=== PATIENT | male | born 1930 | race Caucasian/White ===

== ENCOUNTER → 2016-07-27 | Outpatient (CLI) | payer MEDICARE, OTHER | END | disposition disaster alternative care site (69) | LOC: LCNC 17:10 | DX: R53.82 Chronic fatigue, unspecified (principal) ==

== ENCOUNTER → 2016-08-10 | Outpatient (CLI) | payer MEDICARE, OTHER | END | disposition disaster alternative care site (69) | LOC: LCNC 08:43 | DX: E78.5 Hyperlipidemia, unspecified (principal) ==

== ENCOUNTER → 2016-08-13 | Outpatient (CLI) | payer MEDICARE, OTHER ==
--- NOTE | ~2016-08-13 | ESTC ---
Cardiac Perfusion Imaging Demographics Patient Name GABRIELE Osuna Gender Male Patient Number [id number] Race Visit Number [id number] Ethnicity [employer] ID Room Number Accession Number [id number] Height 70 inches Date of 1930 Weight 184 pounds Interpreting Enio Khan MD Date of study 08/13/2016 Physician Supervising /JENI Welch NM Technologist Freddy Pedersen APRN Ordering Physician Enio Khan MD Stress wireless technician Stress ECG Reading Aldo Welch Nurse Renetta Sandoval Physician TERRI RN Medications Reviewed with Patient prior to Procedure. Procedure Procedure Type: Nuclear Stress Test:Pharmacological, Lexiscan, Cardiolite Stress Test Procedure Start time: 08/13/2016 08:10 Indications: Dyspnea with exertion and History of CAD. Risk Factors The patient risk factors include:prior PCI on 05/13/2005;hypercholesterolemia, treated hypertension, family history of premature CAD and dyslipidemia. Conclusions Summary Cardiolite SPECT images demonstrate a mild area of reversibilty involving the inferolateral region without associated wall motion abnormalities. Possibly consistent with artifact. Normal TID ratio Gated images demonstrate normal left ventricular systolic function without inducible wall motion abnormalities. LVEF is 58% Stress Protocols Resting ECG RSR without ST or T wave changes. Resting HR:53 bpm Resting BP:173/70 mmHg Pre-stress physical exam: Patient assessed by Cynthia Carlson APRN prior to testing. Stress Protocol:Pharmacologic Peak HR:77 bpm HR response: Appropriate Peak BP:141/65 mmHg BP response: Appropriate Predicted HR: 137 bpm HR/BP product:86496 % of predicted HR: 56 Reason for termination:Infusion complete ECG Findings No ECG changes suggestive of ischemia. Arrhythmias No rhythm abnormality. Symptoms Shortness of breath. Flushing. Stress Interpretation Appropriate hemodynamic response to Lexiscan. No significant ST-T wave changes with Lexiscan. ECG portion is negative for ischemia by diagnostic criteria. Stress supervision and interpretation provided by Twyla Carlson APRN . Imaging Results Summed scores - Summed stress score: 12 - Summed rest score: 9 - Summed difference score: 3 Stress ejection Ejection fraction:58 % EDV :116 ml ESV :49 ml Stroke volume :67 ml LV mass :131 gr Imaging Protocols Rest Stress Isotope:Tc99m Sestamibi IV Isotope: Tc99m Sestamibi IV Isotope dose:13.6 mCi Isotope dose:38.7 mCi Date:08/13/2016 07:16 Date:08/13/2016 08:39 Technique: SPECT Technique: Gated Supine SPECT Supine Scan Time:30 minutes post injection Scan Time:45-60 minutes post injection Procedure Medications - Regadenoson (Lexiscan) 0.4 mg IV over 10-15 sec. I.V. . Medical History Admission Data Admission date: 08/13/2016 Admission Time: 06:29 Hospital Status: Outpatient. Signatures dtt: Bill Steen (cardio) dtd: 08/13/16 0810 Physician Self Edit
== END | disposition disaster alternative care site (69) ==
LOC: GRAD 06:29
DX: R06.09 Other forms of dyspnea (principal); E78.00 Pure hypercholesterolemia, unspecified; E78.5 Hyperlipidemia, unspecified; I10 Essential (primary) hypertension; Z98.61 Coronary angioplasty status; Z82.49 Family history of ischemic heart disease and other diseases of the circulatory system
CPT/HCPCS: A9500; J0280; J2785